=== PATIENT | female | born 1980 | race Caucasian/White ===

== ENCOUNTER → 2017-03-23 | Outpatient (CLI) | payer BC ==
[2017-03-23 15:33] LABS: HEMOGLOBIN 9.5 g/dL (12.2-16.2)
[2017-03-23 15:34] LABS: LYMPH # 1.5 K/mm3 (0.7-4.5); LYMPH % 23.6 % (10-50.0)
[2017-03-23 17:09] LABS: BUN 6 mg/dL (7-18)
[2017-03-23 17:10] LABS: GFR (ESTIMATED) 81 ML/MIN (59-)
== END ==
LOC: LAB 15:14
PROVIDERS: Nurse Practitioner Obstetrics & Gynecology
DX: N85.01 Benign endometrial hyperplasia (principal); N90.89 Other specified noninflammatory disorders of vulva and perineum; Z01.818 Encounter for other preprocedural examination

== ENCOUNTER 2017-04-01 13:56 | Emergency (ER) | payer BC ==
[~2017-04-01] VITALS: Ht 157.5 cm; Wt 64.4 kg
[~2017-04-01 13:56] MED LIST: ALBUTEROL2 PUFFS/17 IN; AMOXIL500 MG PO; ATIVAN1 M1 OR; FLINTSTONES1 CTB PO; HYDROXYZINE HCL25 M1 PO; IRON TABLETS325 MG PO; LEVOTHYROXINE0.05 MG NG; MEDROL 4MG. DOSE4 MG PO; NAPROXEN250 MG PO; NICOTINE T21 MG/24 H TD; PERCOCET 5/3251 EACH PO; PHENERGAN 25MG.25 M1 PO; PHENERGAN 25MG.25 MG PR; SERTRALINE 50MG50 MG PO
[2017-04-01 14:12] LABS: URINE BILIRUBIN - DIPSTICK NEGATIVE (NEG); URINE BLOOD 3+ (NEG)
[2017-04-01 14:20] VITALS: BP 113/78
[2017-04-01] MEDS ORDERED: MACROBID100 M3 PO (14:20)
[2017-04-01] MEDS ORDERED: PYRIDIUM100 M2 PO (14:20)
--- NOTE | 2017-04-01 14:21 | Urgent Treatment Center Report ---
History of Present Issue Date/Time Seen by Provider 04/01/17 1723 Visit Reason Pt arrived:Walked Presenting Problem:C/O LOWER BACK PAIN AND LOWER ABD PAIN. PT STATED SHE HAD A LAP HYSTERECTOMY LAST WEDNESDAY. Location if Accident: Onset of symptoms date/time:/ or onset unknown for:MEDICAL HX UNKNOWN Have you (or family members/close friends) recently traveled outside the [place]? N If Yes, where/when: Have you had exposure to infectious disease within the past month? TB? Other? Specify: Patient state that she had a laproscopic hysterectomy done last week State that she thinks she may have a UTI States that she is having some pain in her lower back and feels like she has to urinate frequently and like she cant hold it then when she urinates feels like "she is peeing razor blades" States that she talked to the ladies on OB and they told her she needed to come in and get checked ALLERGIES Coded Allergies: No Known Allergies (03/26/17) Home Medications Active Scripts Ferrous Sulfate (Iron Tablet) 325 MG PO BID #60 ECT Ref 2 Prov: 03/27/17 Oxycodone 5MG/[id number] (Oxycodone-Acetaminophen 5-325) 1-2 TAB PO Q4HP PRN MODERATE TO SEVERE PAIN #30 TAB Prov: 03/27/17 Nicotine (Nicotine Patch) 21 MG TD DAILY #14 PATCH Ref 1 Prov: 03/27/17 HYDROXYZINE HCL (Hydroxyzine HCl) 25 MG PO TID #60 CAP Prov: 04/25/16 Reported Medications MULTIVITAMIN (Flintstones) 1 TAB PO DAILY Sertraline Hcl (Sertraline 50MG) 25 MG PO DAILY Levothyroxine Sodium (Levothyroxine) 0.05 MG NG DAILY History Medical History General CAD? No Angina: No [place]: No Hypertension? No Hyperlipidemia? No CHF? No DVT? No PE? No COPD? No Asthma? No Anemia? No GERD? No Gastric ulcers? No GI Bleed? No Hernia? No Thyroid Problems? Yes Hypothyroidism? No CVA? No Seizures? No Diabetes? No Renal Insuffiency? No UTI? No Stones? No BPH? No GB Disease: No Nephritic Syndrome? No Asplenia? No Hepatitis? No Sickle Cell Disease? No Arthritis? No Migraines? No Cataracts? No Glaucoma? No MRSA? No HIV? No TB? No Anxiety? Yes Depression? No Cancer? No More? No Immunization HX DT/Tetanus 1-4 YRS Flu Refused Pneumonia REFUSED Surgical Hx Previous Surgery?Y LAPAROSCOPY 2004 Family History Family HX Diabetes Yes Hypertension Yes Hyperlipidemia Yes Cancer Yes Social History Smoking Hx Smoker: Former Smoker Tobacco: No Packs/day < 1 Pack Alcohol Alcohol: No Review of Systems All Other Systems Reviewed and Negative Respiratory denies shortness of breath Cardiovascular denies chest pain, denies palpitations Gastrointestinal denies abdominal pain, denies nausea, denies vomiting Genitourinary dysuria, frequency, hesitancy, pain. Physical Exam Vital Signs Vital Signs Date Time Temp Pulse Resp B/P Pulse O2 O2 Flow FiO2 Ox Delivery Rate 04/01 1405 98.7 103 20 113/78 100 General Appearance normal appearance, WD/WN, no apparent distress Respiratory Status Yes: trachea midline, chest symmetrical, non tender chest. No: respiratory distress. Cardiovascular normal exam, regular rate/rhythm, no peripheral edema Neurologic alert, normal exam, oriented x 3 Comments Complaining of pain and burning with urination Denies any surgical complication, denies fever, denies chills Medical Decision Making LABS/Meds/Orders Pt receiving controlled substance in ED? No Results/Orders Laboratory Tests 04/01/17 1411: Urine Color YELLOW, Urine Appearance Cloudy, Urine pH 7.0, Ur Specific [place] 1.015, Urine Protein TRACE H, Urine Ketones NEGATIVE, Urine Blood 3+ H, Urine Nitrate NEGATIVE, Urine Bilirubin NEGATIVE, Urine Urobilinogen 1.0, Ur Leukocyte Esterase 1+ H, Urine Glucose NEGATIVE Orders Procedure Date/time Status [facility] URINE DIPSTICK 04/01 1411 Complete Consult MD Physician Consult Consult/PCP Dr Guido BROCK Time Called 1415 Comments Advised of patient and recommended starting her on Macrobid 100mg bid for 7 days and pyridium 100mg tid for three days and have her follow up in his office Departure Departure Time of Disposition 1417 Disposition DC Home or Self Care(routine) Clinical Impression Primary Impression: UTI (urinary tract infection) Qualifiers: Urinary tract infection type: site unspecified Hematuria presence: with hematuria Qualified Code: N39.0 - Urinary tract infection, site not specified Condition STABLE Referrals Guido HINTON,Ottoniel Izquierdo MD,Brennen (Family) Patient Instructions DI for Urinary Tract Infection (UTI), Urinary Tract Infection Additional Instructions Take medication as prescribed FOllow up with Dr Lora as advised Drink plenty of water Return if needed Over the counter Motrin or Tylenol as needed for pain Discharge Counseling Counseled pt/family regarding diagnosis, test results, medications/RX, home care, follow up needs Prescriptions Current Visit Scripts NITROFURANTOIN MONOHYD/M-CRYST (Macrobid 100 MG Capsule) 100 MG PO BID #14 CAP Phenazopyridine HCl (Pyridium) 100 MG PO TID #9 TAB at 7263
--- NOTE | 2017-04-01 14:21 | Urgent Treatment Center Report ---
History of Present Issue Date/Time Seen by Provider 04/01/17 6813 Visit Reason Pt arrived:Walked Presenting Problem:C/O LOWER BACK PAIN AND LOWER ABD PAIN. PT STATED SHE HAD A LAP HYSTERECTOMY LAST WEDNESDAY. Location if Accident: Onset of symptoms date/time:/ or onset unknown for:MEDICAL HX UNKNOWN Have you (or family members/close friends) recently traveled outside the [place]? N If Yes, where/when: Have you had exposure to infectious disease within the past month? TB? Other? Specify: Patient state that she had a laproscopic hysterectomy done last week State that she thinks she may have a UTI States that she is having some pain in her lower back and feels like she has to urinate frequently and like she cant hold it then when she urinates feels like "she is peeing razor blades" States that she talked to the ladies on OB and they told her she needed to come in and get checked ALLERGIES Coded Allergies: No Known Allergies (03/26/17) Home Medications Active Scripts Ferrous Sulfate (Iron Tablet) 325 MG PO BID #60 ECT Ref 2 Prov: 03/27/17 Oxycodone 5MG/[id number] (Oxycodone-Acetaminophen 5-325) 1-2 TAB PO Q4HP PRN MODERATE TO SEVERE PAIN #30 TAB Prov: 03/27/17 Nicotine (Nicotine Patch) 21 MG TD DAILY #14 PATCH Ref 1 Prov: 03/27/17 HYDROXYZINE HCL (Hydroxyzine HCl) 25 MG PO TID #60 CAP Prov: 04/25/16 Reported Medications MULTIVITAMIN (Flintstones) 1 TAB PO DAILY Sertraline Hcl (Sertraline 50MG) 25 MG PO DAILY Levothyroxine Sodium (Levothyroxine) 0.05 MG NG DAILY History Medical History General CAD? No Angina: No [place]: No Hypertension? No Hyperlipidemia? No CHF? No DVT? No PE? No COPD? No Asthma? No Anemia? No GERD? No Gastric ulcers? No GI Bleed? No Hernia? No Thyroid Problems? Yes Hypothyroidism? No CVA? No Seizures? No Diabetes? No Renal Insuffiency? No UTI? No Stones? No BPH? No GB Disease: No Nephritic Syndrome? No Asplenia? No Hepatitis? No Sickle Cell Disease? No Arthritis? No Migraines? No Cataracts? No Glaucoma? No MRSA? No HIV? No TB? No Anxiety? Yes Depression? No Cancer? No More? No Immunization HX DT/Tetanus 1-4 YRS Flu Refused Pneumonia REFUSED Surgical Hx Previous Surgery?Y LAPAROSCOPY 2004 Family History Family HX Diabetes Yes Hypertension Yes Hyperlipidemia Yes Cancer Yes Social History Smoking Hx Smoker: Former Smoker Tobacco: No Packs/day < 1 Pack Alcohol Alcohol: No Review of Systems All Other Systems Reviewed and Negative Respiratory denies shortness of breath Cardiovascular denies chest pain, denies palpitations Gastrointestinal denies abdominal pain, denies nausea, denies vomiting Genitourinary dysuria, frequency, hesitancy, pain. Physical Exam Vital Signs Vital Signs Date Time Temp Pulse Resp B/P Pulse O2 O2 Flow FiO2 Ox Delivery Rate 04/01 1405 98.7 103 20 113/78 100 General Appearance normal appearance, WD/WN, no apparent distress Respiratory Status Yes: trachea midline, chest symmetrical, non tender chest. No: respiratory distress. Cardiovascular normal exam, regular rate/rhythm, no peripheral edema Neurologic alert, normal exam, oriented x 3 Comments Complaining of pain and burning with urination Denies any surgical complication, denies fever, denies chills Medical Decision Making LABS/Meds/Orders Pt receiving controlled substance in ED? No Results/Orders Laboratory Tests 04/01/17 1411: Urine Color YELLOW, Urine Appearance Cloudy, Urine pH 7.0, Ur Specific [place] 1.015, Urine Protein TRACE H, Urine Ketones NEGATIVE, Urine Blood 3+ H, Urine Nitrate NEGATIVE, Urine Bilirubin NEGATIVE, Urine Urobilinogen 1.0, Ur Leukocyte Esterase 1+ H, Urine Glucose NEGATIVE Orders Procedure Date/time Status [facility] URINE DIPSTICK 04/01 1411 Complete Consult MD Physician Consult Consult/PCP Dr Guido BROCK Time Called 1415 Comments Advised of patient and recommended starting her on Macrobid 100mg bid for 7 days and pyridium 100mg tid for three days and have her follow up in his office Departure Departure Time of Disposition 1417 Disposition DC Home or Self Care(routine) Clinical Impression Primary Impression: UTI (urinary tract infection) Qualifiers: Urinary tract infection type: site unspecified Hematuria presence: with hematuria Qualified Code: N39.0 - Urinary tract infection, site not specified Condition STABLE Referrals Guido HINTON,Ottoniel Izquierdo MD,Brennen (Family) Patient Instructions DI for Urinary Tract Infection (UTI), Urinary Tract Infection Additional Instructions Take medication as prescribed FOllow up with Dr Lora as advised Drink plenty of water Return if needed Over the counter Motrin or Tylenol as needed for pain Discharge Counseling Counseled pt/family regarding diagnosis, test results, medications/RX, home care, follow up needs Prescriptions Current Visit Scripts NITROFURANTOIN MONOHYD/M-CRYST (Macrobid 100 MG Capsule) 100 MG PO BID #14 CAP Phenazopyridine HCl (Pyridium) 100 MG PO TID #9 TAB at 5797
--- OUTSIDE RECORDS SUMMARY | 2017-04-03 17:24 | External Medical Summary Rpt | CCD ---
Author Author , [facility] Organization [facility] Address Unknown Phone .[employer] Immunization Name Date Rout CVX Reac Dose Comm Prov Is Faci e tion ent ider Refu lity Give sed n Tdap 11-0 115 999 Hist H149 No H149 , 2-20 oric Adso 06 al rbed Info rmat ion - Sour ce Unsp ecif ied
--- OUTSIDE RECORDS SUMMARY | 2017-04-03 17:24 | External Medical Summary Rpt | CCD ---
Author Author , [facility] Organization [facility] Address Unknown Phone [email or web address] Immunization Name Date Rout CVX Reac Dose Comm Prov Is Faci e tion ent ider Refu lity Give sed n Tdap 11-0 115 999 Hist H149 No H149 , 2-20 oric Adso 06 al rbed Info rmat ion - Sour ce Unsp ecif ied
--- OUTSIDE RECORDS SUMMARY | 2017-04-03 17:24 | External Medical Summary Rpt | CCD ---
Author Author , [facility] Address Unknown Phone [email or web address] Purpose Continuity of Care Document - 01-13-2017 through 2016 Problems Code Diagnosis DOS Provider Status F41.8 OTHER SPECIFIED ANXIETY DISORDERS Results Labs Lab Lab Date Result Refere Interp Status Commen Order Detail nces retati t Range on CBC w auto diff (03-27-2017 06:29) Automat = 0.0 0-0.2 complet ed 017 K/MM3 ed blood 06:29 basophi l count (count/ vo Automat = 0.0 0.0-0.4 complet ed 017 K/mm3 ed blood 06:29 eosinop hil count Automat = 0.1 % 0.1-12. complet ed 017 0 ed blood 06:29 eosinop hils/10 0 leukocy t Blood = 7.8 1.8-7.8 complet granulo 017 K/mm3 ed cytes 06:29 automat ed count (numb Granulo = 80.8 37.0-80 complet cyte 017 % .0 ed percent 06:29 age Blood = 27.4 37.0-47 complet hematoc 017 % .0 ed rit 06:29 (volume fractio n) Blood = 7.8 12.2-16 complet hemoglo 017 g/dL .2 ed bin 06:29 measure ment (mass/v olum Comment: CRITICAL RESULTS Comment: RESULTS CALLED TO: PATEL 03/27/17 0701 [place] Miles Absolut = 1.4 0.7-4.5 complet e 017 K/mm3 ed lymphoc 06:29 yte count Lymphoc = 14.8 10-50.0 complet yte 017 % ed count, 06:29 blood, automat ed Mean = 21.1 27-31.2 complet corpusc 017 pg ed ular 06:29 hemoglo bin (MCH) determ Automat = 28.4 31.8-35 complet ed 017 g/dl .4 ed erythro 06:29 cyte mean corpusc ular h Automat = 74.2 82.2-97 complet ed 017 fl .8 ed erythro 06:29 cyte mean corpusc ular v Absolut = 0.4 0.1-1.0 complet e 017 K/mm3 ed monocyt 06:29 e count Wal[place] % = 4.1 % 1.7-9.3 complet 017 ed 06:29 Automat = 8.2 7.4-10. complet ed 017 fl 4 ed blood 06:29 platele t mean volume brad Blood = 206 142-424 complet platele 017 K/mm3 ed t count 06: Red = 3.68 4.2-5.4 complet blood 017 M/mm3 ed cell 06:29 count Automat = 16.4 11.5-17 complet ed 017 % .5 ed erythro 06:29 cyte distrib ution width Blood = 9.7 4.8-10. complet leukocy 017 K/MM3 8 ed nehemiah 06:29 count (number /volume ) Baso % = 0.2 % 0.1-2.0 complet 017 ed 06:29 Basic metabolic panel (03-27-2017 06:29) Serum = 5 7-18 complet or 017 mg/dL ed plasma 06:29 urea nitroge n measure men Serum = 8.5 8.5-10. complet or 017 mg/dL 1 ed plasma 06:29 calcium measure ment (mas Serum = 105 98-107 complet or 017 mmoL/L ed plasma 06:29 chlorid e measure ment (mo Carbon = 26 21.0-32 complet dioxide 017 mmoL/L .0 ed 06:29 measure ment Serum = 0.8 0.55-1. complet or 017 mg/dL 02 ed plasma 06:29 creatin ine measure ment ( Estimat = 102 50-200 complet ion of 017 ML/MIN ed creatin 06:29 ine renal clearan ce Estimat = 81 59- complet ed 017 ML/MIN ed glomeru 06:29 lar filtrat ion rate (GF Comment: REFERENCE RANGE: >60 ML/MIN/1.73 SQUARE METERS Comment: If this patient is -[place], then multiply the Comment: result by 1.210. Serum = 100 74-106 complet or 017 mg/dL ed plasma 06:29 glucose measure ment (mas Serum = 3.7 3.5-5.1 complet potassi 017 mmoL/L ed um 06:29 measure ment Serum = 139 136-145 complet sodium 017 mmoL/L ed measure 06:29 ment Urinalysis dipstick W Reflex Microscopic panel in Urine (03-26-2017 09:12) Bacteri 2+ O complet a 017 ed [Presen 09:12 ce] in Urine sedimen t by Light microsc opy Epithel 5-10 0#/hp complet ial 017 f - ed cells.s 09:12 5#/hp quamous f [Presen ce] in Urine sedimen t by Microsc opy high power field Urinalysis dipstick W Reflex Microscopic panel in Urine (03-26-2017 09:12) Appeara SL CLEAR complet nce of 017 CLOUDY ed Urine 09:12 Bilirub NEGATIV NEG complet in 017 E ed [Presen 09:12 ce] in Urine by Test strip Erythro NEGATIV NEG complet cytes 017 E ed [Presen 09:12 ce] in Urine Color STRAW YELLOW complet of 017 ed Urine 09:12 Ketones TRACE NEG Abnorma complet 017 l ed [Presen 09:12 ce] in Urine by Automat ed test strip Mucus NEGATIV NEG complet [Presen 017 E ed ce] in 09:12 Urine sedimen t by Light microsc opy Nitrite NEGATIV NEG complet 017 E ed [Presen 09:12 ce] in Urine by Test strip Urobili 0.2 NEG complet nogen 017 ed [Presen 09:12 ce] in Urine by Test strip Blood type & Indirect antibody screen panel in Blood (03-26-2017 06:42) Blood NEGATIV NEGATIV complet group 017 E E ed antibod 06:42 y screen [Presen ce] in Serum or Plasma Rh POSITIV complet [Type] 017 E ed in 06:42 Blood ABO A complet group 017 ed [Type] 06:42 in Blood
--- OUTSIDE RECORDS SUMMARY | 2017-04-03 17:24 | External Medical Summary Rpt | CCD ---
Author Author , [facility] CARBONE Address Unknown Phone [email or web address] Purpose Continuity of Care Document - 01-13-2017 [...] 017 K/mm3 ed monocyt 06:29 e count [place] % = 4.1 % 1.7-9.3 complet 017 [...] SQUARE METERS Comment: If this patient is -[place]i, then multiply the Comment: result by 1.210. [...]
--- OUTSIDE RECORDS SUMMARY | 2017-04-03 17:25 | External Medical Summary Rpt ---
Author Author [facility], [employer] Address Unknown Phone Unavailable Results Basic metabolic panel in Blood Observa Value Referen Units Interpr Notes Date tion ce etation Range Urea 7 - 18 mg/dL Low No Oct 7 nitrogen informati 2017 6:29 [Mass/vol on in AM ume] in source Serum or data Plasma Calcium 8.5 - mg/dL Normal No Oct 7 [Mass/vol 10.1 informati 2017 6:29 ume] in on in AM Serum or source Plasma data Chloride 98 - 107 mmoL/L Normal No Oct 7 [Moles/vo informati 2017 6:29 lume] in on in AM Serum or source Plasma data Carbon 21.0 - mmoL/L Normal No Oct 7 dioxide, 32.0 informati 2017 6:29 total on in AM [Moles/vo source lume] in data Serum or Plasma Creatinin 0.55 - mg/dL Normal No Oct 7 e 1.02 informati 2017 6:29 [Mass/vol on in AM ume] in source Serum or data Plasma Creatinin 50 - 200 ML/MIN Normal No Oct 7 e renal informati 2017 6:29 clearance on in AM source predicted data by Cockcroft -Gault formula Estimated 59- ML/MIN No REFERENCE Oct 7 informati RANGE: 2017 6:29 glomerula on in >60 AM r source ML/MIN/1. filtratio data 73 SQUARE n rate METERSIf (GF this patient is -A merican, then multiply theresult by 1.210. Glucose 74 - 106 mg/dL Normal No Oct 7 [Mass/vol informati 2017 6:29 ume] in on in AM Serum or source Plasma data Potassium 3.5 - 5.1 mmoL/L Normal No Oct 7 informati 2017 6:29 [Moles/vo on in AM lume] in source Serum or data Plasma Sodium 136 - 145 mmoL/L Normal No Oct 7 [Moles/vo informati 2017 6:29 lume] in on in AM Serum or source Plasma data CBC W Auto Differential panel in Blood Observa Value Referen Units Interpr Notes Date tion ce etation Range Basophils 0 - 0.2 K/MM3 Normal No Mar 27 informati 2016 6:29 [#/volume on in AM ] in source Blood by data Automated count Basophils 0.1 - 2.0 % Normal No Mar 27 / informati 2017 6:29 leukocyte on in AM s in source Blood by data Automated count Eosinophi 0.0 - 0.4 K/mm3 Normal No Mar 27 ls informati 2016 6:29 [#/volume on in AM ] in source Blood by data Automated count Eosinophi 0.1 - % Normal No Mar 27 ls/100 12.0 informati 2017 6:29 leukocyte on in AM s in source Blood by data Automated count Granulocy 1.8 - 7.8 K/mm3 Normal No Mar 27 nehemiah informati 2016 6:29 [#/volume on in AM ] in source Blood by data Automated count Granulocy 37.0 - % High No Mar 27 nehemiah/100 80.0 informati 2016 6:29 leukocyte on in AM s in source Blood by data Automated count Hematocri 37.0 - % Low No Mar 27 t [Volume 47.0 informati 2016 6:29 on in AM Fraction] source of Blood data Hemoglobi 12.2 - g/dL Low alert Mar 27 n 16.2 2016 6:29 [Mass/vol CRITICAL AM ume] in RESULTS Blood RESU LTS CALLED TO: PATEL 03/27/17 0701 O'Eliecer Miles Lymphocyt 0.7 - 4.5 K/mm3 Normal No Mar 27 es informati 2016 6:29 [#/volume on in AM ] in source Unspecifi data ed specimen by Automated count Lymphocyt 10 - 50.0 % Normal No Mar 27 es informati 2016 6:29 [#/volume on in AM ] in source Unspecifi data ed specimen by Automated count Erythrocy 27 - 31.2 pg Low No Mar 27 te mean informati 2017 6:29 corpuscul on in AM ar source hemoglobi data n [Entitic mass] Erythrocy 31.8 - g/dl Low No Mar 27 te mean 35.4 informati 2017 6:29 corpuscul on in AM ar source hemoglobi data n concentra tion [Mass/vol ume] by Automated count Erythrocy 82.2 - fl Low No Mar 27 te mean 97.8 informati 2016 6:29 corpuscul on in AM ar volume source [Entitic data volume] by Automated count Monocytes 0.1 - 1.0 K/mm3 Normal No Mar 7 informati 2016 6:29 [#/volume on in AM ] in source Blood by data Automated count Monocytes 1.7 - 9.3 % Normal No Mar 7 /100 informati 2017 6:29 leukocyte on in AM s in source Blood by data Automated count Platelet 7.4 - fl Normal No Mar 27 mean 10.4 informati 2017 6:29 volume on in AM [Entitic source volume] data in Blood by Automated count Platelets 142 - 424 K/mm3 Normal No Mar 7 informati 2016 6:29 [#/volume on in AM ] in source Blood data Erythrocy 4.2 - 5.4 M/mm3 Low No Mar 27 nehemiah informati 2017 6:29 [#/volume on in AM ] in source Amniotic data fluid Erythrocy 11.5 - % Normal No Mar 27 te 17.5 informati 2017 6:29 distribut on in AM ion width source [Entitic data volume] by Automated count Leukocyte 4.8 - K/MM3 No No Mar 27 s 10.8 informati informati 2017 6:29 [#/volume on in on in AM ] in source source Blood data data Hemoglobin & Hematocrit panel in Blood Observa Value Referen Units Interpr Notes Date ti ce etation Range Hematocri 37.0 - % Low No Mar 26 t [Volume 47.0 informati 2016 3:54 on in PM Fraction] source of Blood data Hemoglobi 12.2 - g/dL Low No Mar 26 n 16.2 informati 2017 3:54 [Mass/vol on in PM ume] in source Blood data Urinalysis dipstick W Reflex Microscopic panel in Urine Observa Value Referen Units Interpr Notes Date ti ce etation Range COMMENTS TO BASKET MENDER: UA OBTAINED FROM [facility] IN OR Collected by nurse? Y Hold specimen in OE? N Appeara SL CLEAR No No No Mar 6 nce of CLOUDY informa informa informa 2017 Urine tion in tion in tion in 9:12 AM source source source data data data Bacteri 2+ O No No No Mar 26 a informa informa informa 2016 [Presen tion in tion in tion in 9:12 AM ce] in source source source Urine data data data sedimen t by Light microsc opy Bilirub NEGATIV NEG No No No Mar 6 in E informa informa informa 2016 [Presen tion in tion in tion in 9:12 AM ce] in source source source Urine data data data by Test strip Erythro NEGATIV NEG No No No Mar 26 cytes E informa informa informa 2016 [Presen tion in tion in tion in 9:12 AM ce] in source source source Urine data data data Color STRAW YELLOW No No No Mar 26 of informa informa informa 2017 Urine tion in tion in tion in 9:12 AM source source source data data data Glucose NEG No No No Mar 26 [Mass/vol informati informati informati 2016 9:12 ume] in on in on in on in AM Urine by source source source Test data data data strip Ketones TRACE NEG mg/dL Abnorma No Mar 6 l informa 2016 [Presen tion in 9:12 AM ce] in source Urine data by Automat ed test strip Mucus NEGATIV NEG No No No Mar 26 [Presen E informa informa informa 2016 ce] in tion in tion in tion in 9:12 AM Urine source source source sedimen data data data t by Light microsc opy Nitrite NEGATIV NEG No No No Mar 26 E informa informa informa 2016 [Presen tion in tion in tion in 9:12 AM ce] in source source source Urine data data data by Test strip pH of 5.0 - 8.5 No Normal No Mar 6 Urine informati informati 2017 9:12 on in on in AM source source data data Protein NEG mg/dL No No Mar 6 [Mass/vol informati informati 2017 9:12 ume] in on in on in AM Urine by source source Automated data data test strip Specific 1.005 - No Normal No Mar 6 gravity 1.030 informati informati 2017 9:12 of Urine on in on in AM source source data data Epithel 5-10 0 - 5 #/hpf No No Mar 6 ial informa informa 2017 cells.s tion in tion in 9:12 AM quamous source source data data [Presen ce] in Urine sedimen t by Microsc opy high power field Urobili 0.2 NEG E.U./dL No No Mar 26 nogen informa informa 2016 [Presen tion in tion in 9:12 AM ce] in source source Urine data data by Test strip Leukocyte O wbc/hpf No No Mar 26 s informati informati 2017 9:12 [#/volume on in on in AM ] in source source Urine data data Urinalysis dipstick W Reflex Microscopic panel in Urine Observa Value Referen Units Interpr Notes Date tion ce etation Range COMMENTS TO BASKET MENDER: UA OBTAINED FROM [facility] IN OR Collected by nurse? Y Hold specimen in OE? N Appeara SL CLEAR No No No Mar 26 nce of CLOUDY informa informa informa 2017 Urine tion in tion in tion in 9:12 AM source source source data data data Bilirub NEGATIV NEG No No No Mar 26 in E informa informa informa 2016 [Presen tion in tion in tion in 9:12 AM ce] in source source source Urine data data data by Test strip Erythro NEGATIV NEG No No No Mar 26 cytes E informa informa informa 2016 [Presen tion in tion in tion in 9:12 AM ce] in source source source Urine data data data Color STRAW YELLOW No No No Mar 26 of informa informa informa 2017 Urine tion in tion in tion in 9:12 AM source source source data data data Glucose NEG No No No Mar 26 [Mass/vol informati informati informati 2016 9:12 ume] in on in on in on in AM Urine by source source source Test data data data strip Ketones TRACE NEG mg/dL Abnorma No Mar 26 l informa 2016 [Presen tion in 9:12 AM ce] in source Urine data by Automat ed test strip Mucus NEGATIV NEG No No No Mar 26 [Presen E informa informa informa 2016 ce] in tion in tion in tion in 9:12 AM Urine source source source sedimen data data data t by Light microsc opy Nitrite NEGATIV NEG No No No Mar 26 E informa informa informa 2016 [Presen tion in tion in tion in 9:12 AM ce] in source source source Urine data data data by Test strip pH of 5.0 - 8.5 No Normal No Mar 26 Urine informati informati 2016 9:12 on in on in AM source source data data Protein NEG mg/dL No No Mar 26 [Mass/vol informati informati 2016 9:12 ume] in on in on in AM Urine by source source Automated data data test strip Specific 1.005 - No Normal No Mar 26 gravity 1.030 informati informati 2016 9:12 of Urine on in on in AM source source data data Urobili 0.2 NEG E.U./dL No No Mar 26 nogen informa informa 2016 [Presen tion in tion in 9:12 AM ce] in source source Urine data data by Test strip CBC W Auto Differential panel in Blood Observa Value Referen Units Interpr Notes Date tion ce etation Range COMMENTS TO BASKET MENDER: PT FOR SURGERY TODAY, [place] 4 Basophils 0 - 0.2 K/MM3 Normal No Mar 26 informati 2016 6:45 [#/volume on in AM ] in source Blood by data Automated count Basophils 0.1 - 2.0 % Normal No Mar 26 /100 informati 2017 6:45 leukocyte on in AM s in source Blood by data Automated count Eosinophi 0.0 - 0.4 K/mm3 Normal No Mar 26 ls informati 2016 6:45 [#/volume on in AM ] in source Blood by data Automated count Eosinophi 0.1 - % Normal No Mar 26 ls/100 12.0 informati 2016 6:45 leukocyte on in AM s in source Blood by data Automated count Granulocy 1.8 - 7.8 K/mm3 Normal No Mar 26 nehemiah informati 2016 6:45 [#/volume on in AM ] in source Blood by data Automated count Granulocy 37.0 - % Normal No Mar 26 nehemiah/100 80.0 informati 2016 6:45 leukocyte on in AM s in source Blood by data Automated count Hematocri 37.0 - % Low No Mar 26 t [Volume 47.0 informati 2016 6:45 on in AM Fraction] source of Blood data Hemoglobi 12.2 - g/dL Low No Mar 26 n 16.2 informati 2016 6:45 [Mass/vol on in AM ume] in source Blood data Lymphocyt 0.7 - 4.5 K/mm3 Normal No Mar 26 es informati 2017 6:45 [#/volume on in AM ] in source Unspecifi data ed specimen by Automated count Lymphocyt 10 - 50.0 % Normal No Mar 26 es informati 2017 6:45 [#/volume on in AM ] in source Unspecifi data ed specimen by Automated count Erythrocy 27 - 31.2 pg Low No Mar 26 te mean informati 2017 6:45 corpuscul on in AM ar source hemoglobi data n [Entitic mass] Erythrocy 31.8 - g/dl Low No Mar 26 te mean 35.4 informati 2017 6:45 corpuscul on in AM ar source hemoglobi data n concentra tion [Mass/vol ume] by Automated count Erythrocy 82.2 - fl Low No Mar 26 te mean 97.8 informati 2017 6:45 corpuscul on in AM ar volume source [Entitic data volume] by Automated count Monocytes 0.1 - 1.0 K/mm3 Normal No Mar 26 informati 2017 6:45 [#/volume on in AM ] in source Blood by data Automated count Monocytes 1.7 - 9.3 % Normal No Mar 6 /100 informati 2017 6:45 leukocyte on in AM s in source Blood by data Automated count Platelet 7.4 - fl Normal No Mar 26 mean 10.4 informati 2017 6:45 volume on in AM [Entitic source volume] data in Blood by Automated count Platelets 142 - 424 K/mm3 Normal No Mar 26 informati 2017 6:45 [#/volume on in AM ] in source Blood data Erythrocy 4.2 - 5.4 M/mm3 Normal No Mar 26 nehemiah informati 2017 6:45 [#/volume on in AM ] in source Amniotic data fluid Erythrocy 11.5 - % Normal No Mar 26 te 17.5 informati 2016 6:45 distribut on in AM ion width source [Entitic data volume] by Automated count Leukocyte 4.8 - K/MM3 Normal No Mar 26 s 10.8 informati 2016 6:45 [#/volume on in AM ] in source Blood data Blood type & Indirect antibody screen panel in Blood Observa Value Referen Units Interpr Notes Date tion ce etation Range COMMENTS TO BASKET MENDER: PT FOR SURGERY TODAY, [place] 4 Blood NEGATIV NEGATIV No No No Mar 26 group E E informa informa informa 2016 antibod tion in tion in tion in 6:42 AM y source source source screen data data data [Presen ce] in Serum or Plasma Rh POSITIV No No No No Oct 6 [Type] E informa informa informa informa 2017 in tion in tion in tion in tion in 6:42 AM Blood source source source source data data data data ABO A No No No No Oct 6 group informa informa informa informa 2017 [Type] tion in tion in tion in tion in 6:42 AM in source source source source Blood data data data data Basic metabolic panel in Blood Observa Value Referen Units Interpr Notes Date tion ce etation Range Urea 7 - 18 mg/dL Low No Oct 3 nitrogen informati 2017 3:16 [Mass/vol on in PM ume] in source Serum or data Plasma Calcium 8.5 - mg/dL Normal No Oct 3 [Mass/vol 10.1 informati 2017 3:16 ume] in on in PM Serum or source Plasma data Chloride 98 - 107 mmoL/L Normal No Oct 3 [Moles/vo informati 2017 3:16 lume] in on in PM Serum or source Plasma data Carbon 21.0 - mmoL/L Normal No Oct 3 dioxide, 32.0 informati 2017 3:16 total on in PM [Moles/vo source lume] in data Serum or Plasma Creatinin 0.55 - mg/dL Normal No Oct 3 e 1.02 informati 2017 3:16 [Mass/vol on in PM ume] in source Serum or data Plasma Estimated 59- ML/MIN No REFERENCE Oct 3 informati RANGE: 2017 3:16 glomerula on in >60 PM r source ML/MIN/1. filtratio data 73 SQUARE n rate METERSIf (GF this patient is -A merican, then multiply theresult by 1.210. Glucose 74 - 106 mg/dL Normal No Oct 3 [Mass/vol informati 2017 3:16 ume] in on in PM Serum or source Plasma data Potassium 3.5 - 5.1 mmoL/L Normal No Oct 3 informati 2017 3:16 [Moles/vo on in PM lume] in source Serum or data Plasma Sodium 136 - 145 mmoL/L Normal No Oct 3 [Moles/vo informati 2017 3:16 lume] in on in PM Serum or source Plasma data Choriogonadotropin [Units/volume] in Serum or Plasma Observa Value Referen Units Interpr Notes Date tion ce etation Range Choriogon NEG No No No Mar 23 adotropin informati informati informati 2016 3:16 on in on in on in PM [Units/vo source source source lume] in data data data Serum or Plasma CBC W Auto Differential panel in Blood Observa Value Referen Units Interpr Notes Date tion ce etation Range Basophils 0 - 0.2 K/MM3 Normal No Mar 23 informati 2016 3:16 [#/volume on in PM ] in source Blood by data Automated count Basophils 0.1 - 2.0 % Normal No Mar 23 /100 informati 2016 3:16 leukocyte on in PM s in source Blood by data Automated count Eosinophi 0.0 - 0.4 K/mm3 Normal No Mar 23 ls informati 2016 3:16 [#/volume on in PM ] in source Blood by data Automated count Eosinophi 0.1 - % Normal No Mar 23 ls/100 12.0 informati 2016 3:16 leukocyte on in PM s in source Blood by data Automated count Granulocy 1.8 - 7.8 K/mm3 Normal No Mar 23 nehemiah informati 2016 3:16 [#/volume on in PM ] in source Blood by data Automated count Granulocy 37.0 - % Normal No Mar 23 nehemiah/100 80.0 informati 2016 3:16 leukocyte on in PM s in source Blood by data Automated count Hematocri 37.0 - % Low No Mar 23 t [Volume 47.0 informati 2016 3:16 on in PM Fraction] source of Blood data Hemoglobi 12.2 - g/dL Low No Mar 23 n 16.2 informati 2016 3:16 [Mass/vol on in PM ume] in source Blood data Lymphocyt 0.7 - 4.5 K/mm3 Normal No Mar 23 es informati 2016 3:16 [#/volume on in PM ] in source Unspecifi data ed specimen by Automated count Lymphocyt 10 - 50.0 % Normal No Mar 23 es informati 2016 3:16 [#/volume on in PM ] in source Unspecifi data ed specimen by Automated count Erythrocy 27 - 31.2 pg Low No Mar 23 te mean informati 2016 3:16 corpuscul on in PM ar source hemoglobi data n [Entitic mass] Erythrocy 31.8 - g/dl Low No Mar 23 te mean 35.4 informati 2016 3:16 corpuscul on in PM ar source hemoglobi data n concentra tion [Mass/vol ume] by Automated count Erythrocy 82.2 - fl Low No Mar 23 te mean 97.8 informati 2016 3:16 corpuscul on in PM ar volume source [Entitic data volume] by Automated count Monocytes 0.1 - 1.0 K/mm3 Normal No Mar 3 informati 2016 3:16 [#/volume on in PM ] in source Blood by data Automated count Monocytes 1.7 - 9.3 % Normal No Mar 3 /100 informati 2016 3:16 leukocyte on in PM s in source Blood by data Automated count Platelet 7.4 - fl Normal No Mar 23 mean 10.4 informati 2016 3:16 volume on in PM [Entitic source volume] data in Blood by Automated count Platelets 142 - 424 K/mm3 Normal No Mar 3 informati 2016 3:16 [#/volume on in PM ] in source Blood data Erythrocy 4.2 - 5.4 M/mm3 Normal No Mar 3 nehemiah informati 2016 3:16 [#/volume on in PM ] in source Amniotic data fluid Erythrocy 11.5 - % Normal No Mar 23 te 17.5 informati 2016 3:16 distribut on in PM ion width source [Entitic data volume] by Automated count Leukocyte 4.8 - K/MM3 Normal No Mar 23 s 10.8 informati 2016 3:16 [#/volume on in PM ] in source Blood data Basic metabolic panel in Blood Observa Value Referen Units Interpr Notes Date tion ce etation Range Urea 7 - 18 mg/dL Low No Jan 13 nitrogen informati 2016 3:13 [Mass/vol on in PM ume] in source Serum or data Plasma Calcium 8.5 - mg/dL Normal No Jan 13 [Mass/vol 10.1 informati 2016 3:13 ume] in on in PM Serum or source Plasma data Chloride 98 - 107 mmoL/L Normal No Jan 13 [Moles/vo informati 2016 3:13 lume] in on in PM Serum or source Plasma data Carbon 21.0 - mmoL/L Normal No Jan 13 dioxide, 32.0 informati 2016 3:13 total on in PM [Moles/vo source lume] in data Serum or Plasma Creatinin 0.55 - mg/dL Normal No Jan 13 e 1.02 informati 2016 3:13 [Mass/vol on in PM ume] in source Serum or data Plasma Estimated 59- ML/MIN No REFERENCE Jan 13 informati RANGE: 2016 3:13 glomerula on in >60 PM r source ML/MIN/1. filtratio data 73 SQUARE n rate METERSIf (GF this patient is -A merican, then multiply theresult by 1.210. Glucose 74 - 106 mg/dL Normal No Jan 13 [Mass/vol informati 2016 3:13 ume] in on in PM Serum or source Plasma data Potassium 3.5 - 5.1 mmoL/L Normal No Jan 13 informati 2016 3:13 [Moles/vo on in PM lume] in source Serum or data Plasma Sodium 136 - 145 mmoL/L Normal No Jan 13 [Moles/vo informati 2016 3:13 lume] in on in PM Serum or source Plasma data Free T4 & TSH panel in Serum or Plasma Observa Value Referen Units Interpr Notes Date tion ce etation Range Thyroxine 5.93 - ug/dl Low No Jan 13 (T4) 13.13 informati 2016 3:13 free on in PM index in source Serum or data Plasma Triiodoth 31 - 39 % Low No Jan 13 yronine informati 2016 3:13 (T3) on in PM resin source uptake in data Serum or Plasma Thyroxine 4.7 - ug/dl Normal No Jan 13 (T4) 13.3 informati 2016 3:13 [Mass/vol on in PM ume] in source Serum or data Plasma Thyrotrop 0.358 - uIU/ml High No Jan 13 in 3.740 informati 2016 3:13 [Units/vo on in PM lume] in source Serum or data Plasma CBC W Auto Differential panel in Blood Observa Value Referen Units Interpr Notes Date tion ce etation Range Basophils 0 - 0.2 K/MM3 Normal No Jan 13 informati 2016 3:13 [#/volume on in PM ] in source Blood by data Automated count Basophils 0.1 - 2.0 % Normal No Jan 13 /100 informati 2016 3:13 leukocyte on in PM s in source Blood by data Automated count Eosinophi 0.0 - 0.4 K/mm3 Normal No Jan 13 ls informati 2016 3:13 [#/volume on in PM ] in source Blood by data Automated count Eosinophi 0.1 - % Normal No Jan 13 ls/100 12.0 informati 2016 3:13 leukocyte on in PM s in source Blood by data Automated count Granulocy 1.8 - 7.8 K/mm3 Normal No Jan 13 nehemiah informati 2016 3:13 [#/volume on in PM ] in source Blood by data Automated count Granulocy 37.0 - % Normal No Jan 13 nehemiah/100 80.0 informati 2016 3:13 leukocyte on in PM s in source Blood by data Automated count Hematocri 37.0 - % Low No Jan 13 t [Volume 47.0 informati 2016 3:13 on in PM Fraction] source of Blood data Hemoglobi 12.2 - g/dL Low No Jan 13 n 16.2 informati 2016 3:13 [Mass/vol on in PM ume] in source Blood data Lymphocyt 0.7 - 4.5 K/mm3 Normal No Jan 13 es informati 2016 3:13 [#/volume on in PM ] in source Unspecifi data ed specimen by Automated count Lymphocyt 10 - 50.0 % Normal No Jan 13 es informati 2016 3:13 [#/volume on in PM ] in source Unspecifi data ed specimen by Automated count Erythrocy 27 - 31.2 pg Low No Jan 13 te mean informati 2016 3:13 corpuscul on in PM ar source hemoglobi data n [Entitic mass] Erythrocy 31.8 - g/dl Low Jan 13 te mean 35.4 informati 2016 3:13 corpuscul on in PM ar source hemoglobi data n concentra tion [Mass/vol ume] by Automated count Erythrocy 82.2 - fl Low No Jan 13 te mean 97.8 informati 2016 3:13 corpuscul on in PM ar volume source [Entitic data volume] by Automated count Monocytes 0.1 - 1.0 K/mm3 Normal No Jan 13 informati 2016 3:13 [#/volume on in PM ] in source Blood by data Automated count Monocytes 1.7 - 9.3 % Normal No Jan 13 /100 informati 2016 3:13 leukocyte on in PM s in source Blood by data Automated count Platelet 7.4 - fl Normal No Jan 13 mean 10.4 informati 2017 3:13 volume on in PM [Entitic source volume] data in Blood by Automated count Platelets 142 - 424 K/mm3 Normal No Jan 13 informati 2017 3:13 [#/volume on in PM ] in source Blood data Erythrocy 4.2 - 5.4 M/mm3 Normal No Jan 13 nehemiah informati 2016 3:13 [#/volume on in PM ] in source Amniotic data fluid Erythrocy 11.5 - % Normal No Jan 13 te 17.5 informati 2016 3:13 distribut on in PM ion width source [Entitic data volume] by Automated count Leukocyte 4.8 - K/MM3 Normal No Jan 13 s 10.8 informati 2017 3:13 [#/volume on in PM ] in source Blood data
--- OUTSIDE RECORDS SUMMARY | 2017-04-03 17:25 | External Medical Summary Rpt ---
[...] Date ti ce etation Range COMMENTS TO ACCOUNTS PAYABLE SPECIALIST: UA OBTAINED FROM [facility] IN OR Collected [...] Date tion ce etation Range COMMENTS TO ACCOUNTS PAYABLE SPECIALIST: UA OBTAINED FROM [facility] IN OR Collected [...] Date tion ce etation Range COMMENTS TO ACCOUNTS PAYABLE SPECIALIST: PT FOR SURGERY TODAY, [place] 4 [...] Date tion ce etation Range COMMENTS TO ACCOUNTS PAYABLE SPECIALIST: PT FOR SURGERY TODAY, [place] 4 [...]
== END 2017-04-01 14:21 | disposition home or self-care (01) ==
LOC: UTC 13:56
PROVIDERS: Nurse Practitioner
DX: N30.01 Acute cystitis with hematuria (principal)

== ENCOUNTER 2017-04-13 19:29 | Emergency (ER) | payer BC ==
[~2017-04-13] VITALS: Ht 157.5 cm; Wt 66.7 kg
[~2017-04-13 19:29] MED LIST changes: +MACROBID100 M3 PO; +PYRIDIUM100 M2 PO
[2017-04-13 19:52] LABS: URINE BILIRUBIN - DIPSTICK NEGATIVE (NEG); URINE BLOOD 1+ (NEG)
[2017-04-13 20:06] LABS: LYMPH # 1.8 K/mm3 (0.7-4.5); LYMPH % 22.8 % (10-50.0)
[2017-04-13 20:11] LABS: HEMOGLOBIN 8.7 g/dL (12.2-16.2)
[2017-04-13 20:13] LABS: URINE SQUAMOUS CELLS 20-50 #/hpf (0-5)
--- OUTSIDE RECORDS SUMMARY | 2017-04-13 20:26 | External Medical Summary Rpt | CCD ---
Author Author , [facility] Address Unknown Phone [email or web address] Immunization Name Date Rout CVX Reac Dose Comm Prov Is Faci e tion ent ider Refu lity Give sed n Tdap 11-0 115 999 Hist H149 No H149 , 2-20 oric Adso 06 al rbed Info rmat ion - Sour ce Unsp ecif ied
--- OUTSIDE RECORDS SUMMARY | 2017-04-13 20:26 | External Medical Summary Rpt | CCD ---
Author Author , [facility] Address Unknown Phone [email or web address] Immunization Name Date Rout CVX Reac Dose Comm Prov Is Faci e tion ent ider Refu lity Give sed n Tdap 11-0 115 999 Hist H149 No H149 , 2-20 oric Adso 06 al rbed Info rmat ion - Sour ce Unsp ecif ied
--- OUTSIDE RECORDS SUMMARY | 2017-04-13 20:26 | External Medical Summary Rpt | CCD ---
Author Author , [facility] Organization [facility] Address Unknown Phone [email or web address] Purpose Continuity of Care Document - 01-13-2017 through 2016 Problems Code Diagnosis DOS Provider Status F41.8 OTHER SPECIFIED ANXIETY DISORDERS Results Labs Lab Lab Date Result Refere Interp Status Commen Order Detail nces retati t Range on CBC w auto diff (04-13-2017 20:00) Automat = 0.0 0-0.2 complet ed 017 K/MM3 ed blood 20:00 basophi l count (count/ vo Baso % = 0.3 % 0.1-2.0 complet 017 ed 20:00 Automat 2 = 0.2 0.0-0.4 complet ed 017 K/mm3 ed blood 20:00 eosinop hil count Automat = 2.5 % 0.1-12. complet ed 017 0 ed blood 20:00 eosinop hils/10 0 leukocy t Blood = 5.6 1.8-7.8 complet granulo 017 K/mm3 ed cytes 20:00 automat ed count (numb Granulo = 70.8 37.0-80 complet cyte 017 % .0 ed percent 20:00 age Blood = 29.6 37.0-47 complet hematoc 017 % .0 ed rit 20:00 (volume fractio n) Blood = 8.7 12.2-16 complet hemoglo 017 g/dL .2 ed bin 20:00 measure ment (mass/v olum Lymphoc = 22.8 10-50.0 complet yte 017 % ed count, 20:00 blood, automat ed Mean = 21.8 27-31.2 complet corpusc 017 pg ed ular 20:00 hemoglo bin (MCH) determ Automat 10-24-2 = 29.2 31.8-35 complet ed 017 g/dl .4 ed erythro 20:00 cyte mean corpusc ular h Automat 2 = 74.5 82.2-97 complet ed 017 fl .8 ed erythro 20:00 cyte mean corpusc ular v Absolut 2 = 0.3 0.1-1.0 complet e 017 K/mm3 ed monocyt 20:00 e count Smyth % 2 = 3.5 % 1.7-9.3 complet 017 ed 20:00 Automat 2 = 7.1 7.4-10. complet ed 017 fl 4 ed blood 20:00 platele t mean volume brad Blood = 343 142-424 complet platele 017 K/mm3 ed t count 20:00 Red = 3.97 4.2-5.4 complet blood 017 M/mm3 ed cell 20:00 count Automat = 16.2 11.5-17 complet ed 017 % .5 ed erythro 20:00 cyte distrib ution width Blood = 7.9 4.8-10. complet leukocy 017 K/MM3 8 ed nehemiah 20:00 count (number /volume ) Absolut = 1.8 0.7-4.5 complet e 017 K/mm3 ed lymphoc 20:00 yte count Urinalysis with microscopy (04-13-2017 19:49) Urine CLEAR CLEAR complet appeara 017 CLEAR L ed nce 19:49 determi nation Bacteri 2+ 2+ L O complet a 017 ed detecti 19:49 on in urine sedimen t by Urine NEGATIV NEG complet total 017 E ed bilirub 19:49 NEGATIV in E L detecti on by test Urine 1+ 1+ L NEG complet blood 017 ed detecti 19:49 on Urine YELLOW YELLOW complet color 017 YELLOW ed 19:49 L Glucose 24 = NEG complet ur 017 NEGATIV ed test 19:49 E strip Urine NEGATIV NEG complet ketones 017 E ed 19:49 NEGATIV detecti E L on by mg/dL automat ed nehemiah Mucus 10-24-2 3+ 3+ L NEG complet detecti 017 ed on in 19:49 urine sedimen t by lig Urine NEGATIV NEG complet nitrite 017 E ed 19:49 NEGATIV detecti E L on by test strip Urine 04-13-2 = 7.0 5.0-8.5 complet pH 017 ed 19:49 Urine 2 = NEG complet protein 017 NEGATIV ed 19:49 E mg/dL measure ment by automat ed t Erythro 04-13-2 3-5 3-5 0 complet cytes 017 L ed detecti 19:49 rbc/hpf on in urine sedimen t Urine 2 < = 1.005-1 complet specifi 017 1.005 .030 ed c 19:49 gravity measure ment [place] 04-13- 20-50 0-5 complet s 017 20-50 L ed epithel 19:49 #/hpf ial cells detecti on in u Urine 0.2 0.2 NEG complet urobili 017 L ed nogen 19:49 E.U./dL detecti on by test str Urine 20 - 50 O complet leukocy 017 ed nehemiah 19:49 wbc/hpf count (number /volume ) Urinalysis by dipstick (04-01-2017 14:11) Urine 1.0 1.0 NEG complet urobili 017 L ed nogen 14:11 E.U./dL detecti on by test str Urine NEGATIV NEG complet nitrite 017 E ed 14:11 NEGATIV detecti E L on by test strip Urine 1+ 1+ L NEG complet leukocy 017 ed te 14:11 esteras e detecti on by au Urine = 1.015 1.005-1 complet specifi 017 .030 ed c 14:11 gravity measure ment Urine = TRACE NEG complet protein 017 mg/dL ed 14:11 measure ment by automat ed t Urine = 7.0 5.0-8.5 complet pH 017 ed 14:11 Urine NEGATIV NEG complet ketones 017 E ed 14:11 NEGATIV detecti E L on by mg/dL automat ed nehemiah Glucose = NEG complet ur 017 NEGATIV ed test 14:11 E strip Urine YELLOW YELLOW complet color 017 YELLOW ed 14:11 L Urine 3+ 3+ L NEG complet blood 017 ed detecti 14:11 on Urine NEGATIV NEG complet total 017 E ed bilirub 14:11 NEGATIV in E L detecti on by test Urine Cloudy CLEAR complet appeara 017 Cloudy ed nce 14:11 L determi nation Urinalysis macro (dipstick) panel in Urine (04-01-2017 14:11) Appeara Cloudy CLEAR complet nce of 017 ed Urine 14:11 Bilirub NEGATIV NEG complet in 017 E ed [Presen 14:11 ce] in Urine by Test strip Erythro 3+ NEG Abnorma complet cytes 017 l ed [Presen 14:11 ce] in Urine Color YELLOW YELLOW complet of 017 ed Urine 14:11 Ketones NEGATIV NEG complet 017 E ed [Presen 14:11 ce] in Urine by Automat ed test strip Leukocy 1+ NEG Abnorma complet te 017 l ed esteras 14:11 e [Presen ce] in Urine by Automat ed test strip Nitrite NEGATIV NEG complet 017 E ed [Presen 14:11 ce] in Urine by Test strip Urobili 1.0 NEG complet nogen 017 ed [Presen 14:11 ce] in Urine by Test strip Basic metabolic panel (03-27-2017 06:29) Serum = 139 136-145 complet sodium 017 mmoL/L ed measure 06:29 ment Serum = 3.7 3.5-5.1 complet potassi 017 mmoL/L ed um 06:29 measure ment Serum = 100 74-106 complet or 017 mg/dL ed plasma 06:29 glucose measure ment (mas Estimat = 81 59- complet ed 017 ML/MIN ed glomeru 06:29 lar filtrat ion rate (GF Comment: REFERENCE RANGE: >60 ML/MIN/1.73 SQUARE METERS Comment: If this patient is -[place], then multiply the Comment: result by 1.210. Estimat = 102 50-200 complet ion of 017 ML/MIN ed creatin 06:29 ine renal clearan ce Serum = 0.8 0.55-1. complet or 017 mg/dL 02 ed plasma 06:29 creatin ine measure ment ( Carbon = 26 21.0-32 complet dioxide 017 mmoL/L .0 ed 06:29 measure ment Serum = 105 98-107 complet or 017 mmoL/L ed plasma 06:29 chlorid e measure ment (mo Serum = 8.5 8.5-10. complet or 017 mg/dL 1 ed plasma 06:29 calcium measure ment (mas Serum = 5 7-18 complet or 017 mg/dL ed plasma 06:29 urea nitroge n measure men CBC w auto diff (03-27-2017 06:29) Baso % = 0.2 % 0.1-2.0 complet 017 ed 06:29 Blood = 9.7 4.8-10. complet leukocy 017 K/MM3 8 ed nehemiah 06:29 count (number /volume ) Automat = 16.4 11.5-17 complet ed 017 % .5 ed erythro 06:29 cyte distrib ution width Red = 3.68 4.2-5.4 complet blood 017 M/mm3 ed cell 06:29 count Blood = 206 142-424 complet platele 017 K/mm3 ed t count 06:29 Automat = 8.2 7.4-10. complet ed 017 fl 4 ed blood 06:29 platele t mean volume brad Smyth % = 4.1 % 1.7-9.3 complet 017 ed 06:29 Absolut = 0.4 0.1-1.0 complet e 017 K/mm3 ed monocyt 06:29 e count Automat = 74.2 82.2-97 complet ed 017 fl .8 ed erythro 06:29 cyte mean corpusc ular v Automat = 28.4 31.8-35 complet ed 017 g/dl .4 ed erythro 06:29 cyte mean corpusc ular h Mean = 21.1 27-31.2 complet corpusc 017 pg ed ular 06:29 hemoglo bin (MCH) determ Lymphoc = 14.8 10-50.0 complet yte 017 % ed count, 06:29 blood, automat ed Absolut = 1.4 0.7-4.5 complet e 017 K/mm3 ed lymphoc 06:29 yte count Blood = 7.8 12.2-16 complet hemoglo 017 g/dL .2 ed bin 06:29 measure ment (mass/v olum Comment: CRITICAL RESULTS Comment: RESULTS CALLED TO: PATEL 03/27/17 0701 O'Roya Miles Blood = 27.4 37.0-47 complet hematoc 017 % .0 ed rit 06:29 (volume fractio n) Granulo = 80.8 37.0-80 complet cyte 017 % .0 ed percent 06:29 age Blood = 7.8 1.8-7.8 complet granulo 017 K/mm3 ed cytes 06:29 automat ed count (numb Automat = 0.1 % 0.1-12. complet ed 017 0 ed blood 06:29 eosinop hils/10 0 leukocy t Automat = 0.0 0.0-0.4 complet ed 017 K/mm3 ed blood 06:29 eosinop hil count Automat = 0.0 0-0.2 complet ed 017 K/MM3 ed blood 06:29 basophi l count (count/ vo Urinalysis dipstick W Reflex Microscopic panel in [...]
--- OUTSIDE RECORDS SUMMARY | 2017-04-13 20:26 | External Medical Summary Rpt | CCD ---
Author Author , [facility] Organization [facility] Address Unknown Phone [email or web address] Purpose Continuity of Care Document - 01-13-2017 [...] 017 K/mm3 ed monocyt 20:00 e count Davis % 2 = 3.5 % 1.7-9.3 complet [...] SQUARE METERS Comment: If this patient is -[place], then multiply the Comment: result by 1.210. [...] blood 06:29 platele t mean volume brad Davis % = 4.1 % 1.7-9.3 complet 017 [...]
--- OUTSIDE RECORDS SUMMARY | 2017-04-13 20:27 | External Medical Summary Rpt ---
Author Author [facility]ellez, [employer] Organization [employer] Address Unknown Phone Unavailable Results Urinalysis macro (dipstick) panel in Urine Observa Value Referen Units Interpr Notes Date tion ce etation Range Appeara Cloudy CLEAR No No No Apr 01 nce of informa informa informa 2017 Urine tion in tion in tion in 2:11 PM source source source data data data Bilirub NEGATIV NEG No No No Apr 01 in E informa informa informa 2016 [Presen tion in tion in tion in 2:11 PM ce] in source source source Urine data data data by Test strip Erythro 3+ NEG No Abnorma No Apr 01 cytes informa l informa 2016 [Presen tion in tion in 2:11 PM ce] in source source Urine data data Color YELLOW YELLOW No No No Apr 01 of informa informa informa 2017 Urine tion in tion in tion in 2:11 PM source source source data data data Glucose NEG No No No Apr 01 [Mass/vol informati informati informati 2017 2:11 ume] in on in on in on in PM Urine by source source source Test data data data strip Ketones NEGATIV NEG mg/dL No No Apr 01 E informa informa 2016 [Presen tion in tion in 2:11 PM ce] in source source Urine data data by Automat ed test strip pH of 5.0 - 8.5 No Normal No Apr 01 Urine informati informati 2017 2:11 on in on in PM source source data data Protein NEG mg/dL High No Apr 01 [Mass/vol informati 2016 2:11 ume] in on in PM Urine by source Automated data test strip Specific 1.005 - No Normal No Apr 01 gravity 1.030 informati informati 2017 2:11 of Urine on in on in PM source source data data Leukocy 1+ NEG No Abnorma No Apr 01 te informa l informa 2017 esteras tion in tion in 2:11 PM e source source [Presen data data ce] in Urine by Automat ed test strip Nitrite NEGATIV NEG No No No Mar 12 E informa informa informa 2017 [Presen tion in tion in tion in 2:11 PM ce] in source source source Urine data data data by Test strip Urobili 1.0 NEG E.U./dL No No Oct 12 nogen informa informa 2017 [Presen tion in tion in 2:11 PM ce] in source source Urine data data by Test strip Basic metabolic panel in Blood Observa Value [...] 0.2 K/MM3 Normal No Mar 27 informati 2017 6:29 [#/volume on in AM ] in source Blood by data Automated count Basophils 0.1 - 2.0 % Normal No Mar 27 /100 informati 2017 6:29 leukocyte on in AM s in source Blood by data Automated count Eosinophi 0.0 - 0.4 K/mm3 Normal No Mar 27 ls informati 2017 6:29 [#/volume on in AM [...] High No Mar 27 nehemiah/100 80.0 informati 2017 6:29 leukocyte on in AM s in source Blood by data Automated count Hematocri 37.0 - % Low No Mar 27 t [Volume 47.0 informati 2017 6:29 on in AM Fraction] source of Blood data Hemoglobi 12.2 - g/dL Low alert Mar 27 n 16.2 2016 6:29 [Mass/vol CRITICAL AM ume] in RESULTS Blood RESU LTS CALLED TO: PATEL 03/27/17 0701 O'Eliecer Miles Lymphocyt 0.7 - 4.5 K/mm3 Normal No Mar 27 es informati 2017 6:29 [#/volume on in AM ] in source Unspecifi data ed specimen by Automated count Lymphocyt 10 - 50.0 % Normal No Mar 27 es informati 2017 6:29 [#/volume on in AM [...] Erythrocy 82.2 - fl Low No Mar 7 te mean 97.8 informati 2017 6:29 corpuscul on in AM ar volume source [Entitic data volume] by Automated count Monocytes 0.1 - 1.0 K/mm3 Normal No Mar 7 informati 2017 6:29 [#/volume on in AM [...] 424 K/mm3 Normal No Mar 7 informati 2017 6:29 [#/volume on in AM ] in source Blood data Erythrocy 4.2 - 5.4 M/mm3 Low No Mar 7 nehemiah informati 2017 6:29 [#/volume on in AM ] in source Amniotic data fluid Erythrocy 11.5 - % Normal No Mar 27 te 17.5 informati 2017 6:29 distribut on in AM ion width source [Entitic data volume] by Automated count Leukocyte 4.8 - K/MM3 No No Mar 7 s 10.8 informati informati 2017 6:29 [#/volume on in on in AM ] in source source Blood data data Hemoglobin & Hematocrit panel in Blood Observa Value Referen Units Interpr Notes Date tion ce etation Range Hematocri 37.0 - % Low No Mar 6 t [Volume 47.0 informati 2017 3:54 on in PM Fraction] source of Blood data Hemoglobi 12.2 - g/dL Low No Mar 6 n 16.2 informati 2017 3:54 [Mass/vol on in PM ume] in source Blood data Urinalysis dipstick W Reflex Microscopic panel in Urine Observa Value Referen Units Interpr Notes Date tion ce etation Range COMMENTS TO LIBRARY SALES CONSULTANT: UA OBTAINED FROM [facility] IN OR Collected by nurse? Y Hold specimen in OE? N Appeara SL CLEAR No No No Oct 6 nce of CLOUDY informa informa informa [...] No Mar 26 of informa informa informa 2016 Urine tion in tion in tion in [...] 0 - 5 #/hpf No No Mar 26 ial informa informa 2017 cells.s tion in [...] Date tion ce etation Range COMMENTS TO LIBRARY SALES CONSULTANT: UA OBTAINED FROM [facility] IN OR Collected by nurse? Y Hold specimen in OE? N Appeara SL CLEAR No No No Mar 26 nce of CLOUDY informa informa informa 2016 Urine tion in tion in tion in [...] Normal No Mar 6 Urine informati informati 2016 9:12 on in [...] Date tion ce etation Range COMMENTS TO LIBRARY SALES CONSULTANT: PT FOR SURGERY TODAY, [place] 4 Basophils 0 - 0.2 K/MM3 Normal No Mar 26 informati 2016 6:45 [#/volume on in AM ] in source Blood by data Automated count Basophils 0.1 - 2.0 % Normal No Mar 26 informati 2016 6:45 leukocyte on in AM [...] 1.8 - 7.8 K/mm3 Normal No Mar 6 nehemiah informati 2016 6:45 [#/volume on in [...] No Mar 26 n 16.2 informati 2017 6:45 [Mass/vol on in AM ume] in [...] 1.0 K/mm3 Normal No Mar 26 informati 2016 6:45 [...] 424 K/mm3 Normal No Mar 26 informati 2016 6:45 [#/volume on in AM ] in source Blood data Erythrocy 4.2 - 5.4 M/mm3 Normal No Mar 26 nehemiah informati 2017 6:45 [#/volume on in AM ] in source Amniotic data fluid Erythrocy 11.5 - % Normal No Mar 26 te 17.5 informati 2017 6:45 distribut on in AM ion width source [Entitic data volume] by Automated count Leukocyte 4.8 - K/MM3 Normal No Mar 6 s 10.8 informati 2016 6:45 [#/volume on in AM ] in source Blood data Blood type & Indirect antibody screen panel in Blood Observa Value Referen Units Interpr Notes Date tion ce etation Range COMMENTS TO LIBRARY SALES CONSULTANT: PT FOR SURGERY TODAY, [place] 4 Blood NEGATIV NEGATIV No No No Oct 6 group E E informa informa informa 2016 [...] mg/dL Low No Oct 3 nitrogen informati 2016 3:16 [Mass/vol on in PM ume] in source Serum or data Plasma Calcium 8.5 - mg/dL Normal No Oct 3 [Mass/vol 10.1 informati 2016 3:16 ume] in on in PM Serum or source Plasma data Chloride 98 - 107 mmoL/L Normal No Oct 3 [Moles/vo informati 2016 3:16 lume] in on in PM Serum [...] Sodium 136 - 145 mmoL/L Normal No Mar 3 [Moles/vo informati 2016 3:16 lume] in on in PM Serum [...] - 0.2 K/MM3 Normal No Mar 23 inform2016 3:16 [#/volume on in PM ] in source Blood by data Automated count Basophils 0.1 - 2.0 % Normal No Mar 23 informati 2016 3:16 leukocyte on in PM [...] 7.8 K/mm3 Normal No Mar 23 nehemiah inform2016 3:16 [#/volume on in PM ] in [...] pg Low No Mar 23 te mean inform2016 3:16 corpuscul on in PM ar source hemoglobi data n [Entitic mass] Erythrocy 31.8 - g/dl Low No Mar 23 te mean 35.4 inform2016 3:16 corpuscul on in PM ar source [...] - 424 K/mm3 Normal No Mar 3 inform2016 3:16 [#/volume on in PM ] in [...] ML/MIN No REFERENCE Jan 13 informati RANGE: 2017 3:13 glomerula on in >60 PM r [...] Plasma Observa Value Referen Units Interpr Notes tion etation Range Thyroxine 5.93 - ug/dl Low No Jan 13 (T4) 13.13 informati 2016 3:13 free on in PM index in source Serum or data Plasma Triiodoth 31 - 39 % Low No Jan 13 yronine ati 2016 3:13 (T3) on in PM resin [...] Automated count Erythrocy 82.2 - fl Low Jan 13 te mean 97.8 informati 2016 3:13 corpuscul on in PM ar volume source [Entitic data volume] by Automated count Monocytes 0.1 - 1.0 K/mm3 Normal No Jan 13 informati 2016 3:13 [#/volume on in PM ] in source Blood by data Automated count Monocytes 1.7 - 9.3 % Normal No Jan 13 informati 2016 3:13 leukocyte on in PM s in source Blood by data Automated count Platelet 7.4 - fl Normal No Jan 13 mean 10.4 informati 2016 3:13 volume on in PM [Entitic source volume] data in Blood by Automated count Platelets 142 - 424 K/mm3 Normal No Jan 13 informati 2016 [...] Normal No Jan 13 s 10.8 informati 2016 3:13 [#/volume on in PM ] in source Blood data
--- OUTSIDE RECORDS SUMMARY | 2017-04-13 20:27 | External Medical Summary Rpt ---
[...] Date tion ce etation Range COMMENTS TO ARTIST'S MANAGER: UA OBTAINED FROM [facility] IN OR Collected [...] Date tion ce etation Range COMMENTS TO ARTIST'S MANAGER: UA OBTAINED FROM [facility] IN OR Collected [...] Date tion ce etation Range COMMENTS TO ARTIST'S MANAGER: PT FOR SURGERY TODAY, [place] 4 [...] Date tion ce etation Range COMMENTS TO ARTIST'S MANAGER: PT FOR SURGERY TODAY, [place] 4 [...]
[2017-04-13] MEDS ORDERED: CIPRO 500MG TA500 MG PO (21:19)
[2017-04-13] MEDS ORDERED: ETODOLAC200 MG PO (21:20)
--- NOTE | 2017-04-13 21:20 | Emergency Room Report ---
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 N Clinical Suspician of Infection? N Mental Status: 1 - Regular (Normal Baseline) Sepsis Risk:Low Sepsis Risk Have you (or family members/close friends) recently traveled outside the [place]? N If Yes, where/when: Have you had exposure to infectious disease within the past month? N TB? Other? Specify: Source patient, RN notes reviewed, family, RN/MD Exam Limitations no limitations Comment This is a 37-year-old feel patient that underwent a hysterectomy approximately 2 weeks ago, seen in this emergency room on 2 separate occasions with low back pain, returning today with same complaint, low back pain, radiating to the RIGHT shoulder. Patient believes that her current episode of back pain is due to her poor sleeping habits and a hard bed. Patient denies any neurological deficits, denies any incontinence, denies any trauma/injury. She has been anemic recently and her PCP started her on oral iron (Ferrosol). ALLERGIES Coded Allergies: No Known Allergies (03/26/17) Home Medications Active Scripts Ferrous Sulfate (Iron Tablet) 325 MG PO BID #60 ECT Ref 2 Prov: 03/27/17 Reported Medications Levothyroxine Sodium (Levothyroxine) 0.025 MG NG DAILY History Medical History General CAD? No Angina: No IN: No Hypertension? No Hyperlipidemia? No CHF? No DVT? No PE? No COPD? No Asthma? No Anemia? No GERD? No Gastric ulcers? No GI Bleed? No Hernia? No Thyroid Problems? Yes Hypothyroidism? No CVA? No Seizures? No Diabetes? No Renal Insuffiency? No End Stage Renal Disease? No UTI? No Stones? No BPH? No GB Disease: No Nephritic Syndrome? No Asplenia? No Hepatitis? No Sickle Cell Disease? No Arthritis? No Migraines? No Cataracts? No Glaucoma? No MRSA? No HIV? No TB? No Anxiety? Yes Depression? No Cancer? No More? No Immunization Hx DT/Tetanus 1-4 YRS Flu Refused Pneumonia REFUSED Surgical Hx Previous Surgery?Y LAPAROSCOPY 2005 HYSTERECTOMY [employer] Hx LMP N/A Comment HAD HYSTERECTOMY Family History Family Hx Diabetes Yes Hypertension Yes Hyperlipidemia Yes Cancer Yes Social History Smoking Hx Smoker: Former Smoker Tobacco: No Type Cigarettes Packs/day < 1 Pack Alcohol Alcohol: No Review of Systems All Other Systems Reviewed and Negative Genitourinary pain (low back pain, RIGHT shoulder ). Physical Exam Vital Signs Vital Signs Date Time Temp Pulse Resp B/P Pulse O2 O2 Flow FiO2 Ox Delivery Rate 04/13 2201 98.1 79 16 130/75 100 04/13 2047 79 16 130/75 100 04/13 1934 98.1 83 20 136/90 100 General Appearance normal appearance, WD/WN, mild distress Neck normal inspection, non-tender, supple, full range of motion Respiratory Status Yes: trachea midline, chest symmetrical, non tender chest. No: respiratory distress. Lung Sounds bilateral: normal breath sounds, lungs clear. Cardiovascular normal exam, regular rate/rhythm, no peripheral edema, no gallop, no JVD, no murmur, no rub, normal peripheral pulses Peripheral Pulses Pulses normal Yes Gastrointestinal normal bowel sounds, normal exam, non tender, soft, no organomegaly Back normal inspection, no vertebral tenderness, gait normal, CVA tenderness (R) , muscle spasm Extremities non-tender, normal range of motion, normal inspection, RIGHT shoulder nontender to palpation, no deformity, full range of motion preserved Neurologic alert, sieve grader tender II-XII nml as tested, normal exam, oriented x 3 Mental status normal mood/affect Skin intact, normal color, warm/dry Medical Decision Making LABS/Meds/Orders Pt receiving controlled substance in ED? No Comment 0200 - upon evaluation patient appears medically stable, in no acute distress. Advised patient of need for her to follow-up with her PCP regarding further management of her iron deficiency anemia, and possible IV iron infusion (Venofer ). Advised patient of findings obtained today also of need for her to see a urologist within the next few days for outpatient management of her kidney stones. Results/Orders Laboratory Tests 04/13/171999: Sodium 139, Potassium 3.6, Chloride 101, Carbon Dioxide 27, BUN 6 L, Creatinine 1.0, Estimated Creat Clear 82, Estimated GFR (MDRD) 63, Glucose 104, Calcium 8.7 , Total Bilirubin 0.3, AST 13 L, ALT 12, Alkaline Phosphatase 69, Total Protein 7.9, Albumin 3.7, Globulin 4.2 H, Albumin/Globulin Ratio 0.9 L, Amylase 90, Lipase 136, WBC 7.9, RBC 3.97 L, Hgb 8.7 L, Hct 29.6 L, MCV 74.5 L, RDW 16.2 , Plt Count 343, MPV 7.1 L, Gran % 70.8, Gran # 5.6, Lymphocytes % 22.8, Monocytes % 3.5, Eosinophils % 2.5, Basophils % 0.3, Lymphocytes # 1.8, Monocytes # 0.3, Eosinophils # 0.2, Basophils # 0.0, PUBS MCHC 29.2 L, MCH 21.8 L 04/13/171948: Urine Color YELLOW, Urine Appearance CLEAR, Urine pH 7.0, Ur Specific [place] <= 1.005, Urine Protein NEGATIVE, Urine Ketones NEGATIVE, Urine Blood 1+ H, Urine Nitrate NEGATIVE, Urine Bilirubin NEGATIVE, Urine Urobilinogen 0.2, Ur Leukocyte Esterase 3+ H, Urine RBC 3-5, Urine WBC 20-50, Ur Squamous Epith Cells 20-50, Urine Bacteria 2+, Urine Glucose NEGATIVE Current Medication Orders Sig/Casandra Start time Last Medication Dose Route Stop Time Status Admin Tramadol HCl 0 .STK-MED ONE 04/13 2147 DC PO Ceftriaxone Sodium 0 .STK-MED ONE 04/13 2146 DC IV Sodium Chloride 50 ML .STK-MED ONE 04/13 2146 DC IV Ceftriaxone Sodium 1 GM ONCE ONE 04/13 2145 DCD 04/13 Sodium Chloride 50 ML IV 04/13 Tramadol HCl 1 AMADA ONCE ONE 04/13 2130 DC 04/13 PO 04/13 Iopamidol 75 ML ONCE ONE 04/13 2045 DCD 04/13 IV 04/13 Sodium Chloride 10 ML ONCE ONE 04/13 2045 DCD 04/13 IV 04/13 Sodium Chloride 10 ML PRN PRN 04/13 1945 DCD IV 04/14 1945 Orders Procedure Date/time Status DIET-NOTHING BY MOUTH 04/[address] ABD & PELVIS W/ CONTRAST 04/13 1955 Active CULTURE, URINE 04/[address] ABD/PELVIS REQ 04/13 1946 Complete IV SALINE LOCK 04/13 1946 Active URINALYSIS/COMPLETE 04/13 1946 Complete LIPASE 04/13 1946 Complete CBC WITH AUTO DIFF 04/13 1946 Complete CHEM 12 PROFILE 04/13 1946 Complete AMYLASE 04/13 1946 Complete XRAY/CT/US XRAY/CT/US CT abdomen, pelvis CT interpretation by discussed w/radiologist CT Results see virtual radiology report Departure Departure Time of Disposition 2116 Disposition DC Home or Self Care(routine) Clinical Impression Primary Impression: UTI (urinary tract infection) Qualifiers: Urinary tract infection type: acute cystitis Hematuria presence: without hematuria Qualified Code: N30.00 - Acute cystitis without hematuria Secondary Impressions: Anemia Qualifiers: Anemia type: iron deficiency Iron deficiency anemia type: unspecified iron deficiency Qualified Code: D50.9 - Iron deficiency anemia, unspecified Back pain Qualifiers: Back pain location: back pain in unspecified location Chronicity: acute Back pain laterality: left Qualified Code: M54.9 - Dorsalgia, unspecified Iron deficiency Nephrolithiasis Condition STABLE Referrals Cheng HINTON,Mian Giordano MD,Denilson Patient Instructions DI for Kidney Stones, DI for Low Back Pain, DI for Urinary Tract Infection (UTI), Iron-Deficiency Anemia Additional Instructions Please drink plenty of fluids, follow-up with one of the urologists listed below , Dr. Anand or Dr. Giordaon, strain your urine, take the medications prescribed as directed. Discharge Counseling Counseled pt/family regarding diagnosis, test results, medications/RX, home care, follow up needs Comment Please drink plenty of fluids, follow-up with one of the urologists listed below , Dr. Anand or Dr. Giordano, strain your urine, take the medications prescribed as directed. Prescriptions Current Visit Scripts Ciprofloxacin HCl (Cipro 500MG TAB) 500 MG PO BID #20 TAB Etodolac 200 MG PO QIDP PRN pain #28 [facility] Critical Care Critical Care No at 6150
[2017-04-13 22:01] VITALS: BP 130/75
--- NOTE | 2017-04-14 08:46 | RADIOLOGY REPORT PS360 ---
CT ABD PELVIS W/ CONTRAST CLINICAL INDICATION: RIGHT MID BACK PAIN RADIATING TO RIGHT SHOULDER ORDERING PHYSICIAN: Fish Carlin MD PATIENT AGE: 37 years COMPARISON: None TECHNIQUE: Axial images obtained with sagittal and coronal reformats. PROCEDURE: Oral Contrast: None IV Contrast: 75 mL [id number]. FINDINGS: There is mild atelectatic change in the right lung base. The liver, gallbladder, spleen, adrenal glands, and pancreas have an unremarkable appearance. Nonobstructing 6 mm stone is present in the lower pole left kidney. No hydronephrosis. No obvious renal mass. There are small lymph nodes in the retroperitoneum and mesentery's. No intestinal obstruction or free air. Unremarkable appendix. No evidence of diverticulitis. There is diastases of the rectus abdominous at the level the umbilicus with bulging of the abdominal fascia anteriorly but no cassandra hernia. Post hysterectomy changes. There is very minimal blurring of the fat along each aspect of the urinary bladder nonspecific but could be seen with cystitis. Postsurgical well. No acute bony anomalies. IMPRESSION: 1. Left nephrolithiasis. 2. Diastasis rectus. 3. Minimal blurring of the fat anterior to the urinary bladder nonspecific but could be seen with cystitis
== END 2017-04-13 22:06 | disposition home or self-care (01) ==
LOC: ER 19:29
PROVIDERS: Emergency Medicine
DX: N30.00 Acute cystitis without hematuria (principal); D50.9 Iron deficiency anemia, unspecified; M54.9 Dorsalgia, unspecified; Z87.891 Personal history of nicotine dependence; N20.2 Calculus of kidney with calculus of ureter
CPT/HCPCS: Q9967